=== PATIENT | male | born 1980 | race Two or more races ===

== ENCOUNTER → 2024-07-02 09:40 | Outpatient (REF) | payer BC, SELFPAY ==
[2024-07-02 11:26] LABS: ALT (SGPT) 31 U/L (0-50); AST (SGOT) 47 U/L (17-59); Albumin 4.4 g/dl (3.5-5.0); Alkaline Phosphatase 79 U/L (38-126); Blood Urea Nitrogen 25 mg/dl (9-20); Calcium 9.1 mg/dl (8.4-10.2); Carbon Dioxide 27 mmol/L (22-30); Chloride 102 mmol/L (98-107); Glucose 83 mg/dl (70-99); HDL Cholesterol 36 mg/dl; LDL Cholesterol, Calculated 120 mg/dl; Potassium 4.4 mmol/L (3.5-5.1); Sodium 135 mmol/L (135-145); Total Bilirubin 0.9 mg/dl (0.2-1.3); Total Cholesterol 175 mg/dl (50-199); Total Protein 7.3 g/dl (6.3-8.2); Triglyceride 97 mg/dl (10-149); Very Low Density Lipoprotein 19 mg/dl (0-30); eGFR > 60.00
[2024-07-02 11:38] LABS: Hematocrit 40.3 % (39.0-52.0); Hemoglobin 14 g/dL (13.0-18.0); Mean Corp Hgb Conc. 34.7 g/dL (33.0-37.0); Mean Corpuscular Hgb 33.4 pg (27.0-31.0); Mean Corpuscular Volume 96.2 fL (80.0-94.0); Red Blood Cell Count 4.19 10^6/uL (4.70-6.10); Red Cell Dist. Width 12.1 % (11.5-14.5); White Blood Cell Count 2.8 10^3/uL (4.8-10.8)
[2024-07-02 11:39] LABS: Band Neutrophils 4 % (0-3); Lymphocytes 46 % (20-51); Mean Platelet Volume 10.2 fL (7.4-10.4); Platelet Count 173 10^3/uL (130-400); Segmented Neutrophils 32 % (42-75)
[2024-07-02 11:40] LABS: Eosinophils 3 % (0-6); Metamyelocytes 2 % (-); Monocytes 12 % (2-9); Myelocytes 1 % (-); Normal RBC Morphology Yes; Platelets Checked Yes; Total Cells Counted 100
[2024-07-02 11:50] LABS: TSH Reflex To Free T4 1.17 uIU/ml (0.47-4.68)
[2024-07-02 12:00] LABS: % Basophils 1.1 % (0-2); % Eosinophils 5.4 % (0-6); % Monocytes 18.9 % (1.7-9.3); % Neutrophils 29.6 % (42.2-75.2); Absolute Eosinophils 0.2 10^3/uL (0-0.7); Absolute Lymphocytes 1.3 10^3/uL (1.2-3.4); Absolute Monocytes 0.5 10^3/uL (0.1-0.6); Absolute Neutrophils 0.8 10^3/uL (1.4-6.5); Nucleated Red Blood Cells % 0 % (-)
== END ==
LOC: REG 09:40
PROVIDERS: ATTENDING PHYSICIAN Nurse Practitioner
DX: Z00.01 Encounter for general adult medical examination with abnormal findings (principal)
CPT/HCPCS: 36415; 80053; 80061; 84443; 85025

== ENCOUNTER → 2024-08-13 12:25 | Outpatient (REF) | payer BC, SELFPAY | LOC: RAD 12:25 | PROVIDERS: ATTENDING PHYSICIAN Physician Assistant Surgical; FAMILY PHYSICIAN Nurse Practitioner | DX: M79.5 Residual foreign body in soft tissue (principal) | CPT/HCPCS: 70030 ==

== ENCOUNTER → 2024-10-27 12:59 | Outpatient (REF) | payer BC, SELFPAY ==
[2024-10-27 16:20] LABS: Hepatitis B Surface Antigen Negative (Negative)
[2024-10-27 16:29] LABS: HIV Combo Negative (Negative)
[2024-10-27 16:38] LABS: Hepatitis B Surface Antibody Positive; Hepatitis C Antibody Negative (Negative)
== END ==
LOC: REG 12:59
PROVIDERS: ATTENDING PHYSICIAN Nurse Practitioner Family
DX: Z57.8 Occupational exposure to other risk factors (principal)
CPT/HCPCS: 36415; 86706; 86803; 87340; 87389

== ENCOUNTER 2024-12-21 10:12 | Outpatient (RCR) | payer BC, SELFPAY | END 2024-12-21 23:59 | disposition home or self-care (01) | LOC: RPT 10:12 | PROVIDERS: ATTENDING PHYSICIAN Specialist; FAMILY PHYSICIAN Nurse Practitioner Family | DX: M22.2X1 Patellofemoral disorders, right knee (principal); Z73.6 Limitation of activities due to disability; M25.561 Pain in right knee | CPT/HCPCS: 97110; 97162 ==

== ENCOUNTER 2025-01-14 14:01 | Outpatient (RCR) | payer BC, SELFPAY | END 2025-01-14 23:59 | disposition home or self-care (01) | LOC: RPT 14:01 | PROVIDERS: ATTENDING PHYSICIAN Specialist; FAMILY PHYSICIAN Nurse Practitioner Family | DX: M22.2X1 Patellofemoral disorders, right knee (principal); Z73.6 Limitation of activities due to disability; M25.561 Pain in right knee; M62.81 Muscle weakness (generalized) | CPT/HCPCS: 97110 ==

== ENCOUNTER 2025-01-28 14:16 | Outpatient (RCR) | payer BC, SELFPAY | END 2025-02-03 15:11 | disposition home or self-care (01) | LOC: RPT 14:16 | PROVIDERS: ATTENDING PHYSICIAN Specialist; FAMILY PHYSICIAN Nurse Practitioner Family | DX: M22.2X1 Patellofemoral disorders, right knee (principal); Z73.6 Limitation of activities due to disability; M25.561 Pain in right knee; M62.81 Muscle weakness (generalized) | CPT/HCPCS: 97110 ==

== ENCOUNTER → 2025-07-15 10:38 | Outpatient (REF) | payer BC, SELFPAY ==
[2025-07-15 11:53] LABS: Hematocrit 40.1 % (39.0-52.0); Hemoglobin 13.5 g/dL (13.0-18.0); Mean Corp Hgb Conc. 33.7 g/dL (33.0-37.0); Mean Corpuscular Volume 97.1 fL (80.0-94.0); Nucleated Red Blood Cells % 0 % (-); Platelet Count 196 10^3/uL (130-400); Red Cell Dist. Width 12.2 % (11.5-14.5)
[2025-07-15 12:19] LABS: ALT (SGPT) 39 U/L (0-50); AST (SGOT) 58 U/L (17-59); Albumin 4.4 g/dl (3.5-5.0); Alkaline Phosphatase 67 U/L (38-126); Blood Urea Nitrogen 17 mg/dl (9-20); Calcium 9.2 mg/dl (8.4-10.2); Carbon Dioxide 27 mmol/L (22-30); Chloride 105 mmol/L (98-107); Glucose 87 mg/dl (70-99); HDL Cholesterol 46 mg/dl; LDL Cholesterol, Calculated 125 mg/dl; Potassium 4.8 mmol/L (3.5-5.1); Sodium 139 mmol/L (135-145); Total Protein 7.7 g/dl (6.3-8.2); Very Low Density Lipoprotein 14 mg/dl (0-30); eGFR > 60.00
== END ==
LOC: REG 10:38
PROVIDERS: ATTENDING PHYSICIAN Nurse Practitioner Family
DX: D70.8 Other neutropenia (principal); Z00.01 Encounter for general adult medical examination with abnormal findings
CPT/HCPCS: 36415; 80053; 80061; 84443; 85025